=== PATIENT | female | born 1955 | race Hispanic/Latino ===

== ENCOUNTER 2020-05-13 11:28 | Emergency (ER) | payer OTHER | END 2020-05-13 12:10 | disposition home or self-care (01) | LOC: NAV ERS 11:28 | DX: M25.561 Pain in right knee (principal); F41.9 Anxiety disorder, unspecified; F32.9 Major depressive disorder, single episode, unspecified; Z79.899 Other long term (current) drug therapy; X50.1XXA Overexertion from prolonged static or awkward postures, initial encounter | CPT/HCPCS: 99283 ==

== ENCOUNTER 2022-08-20 20:29 | Emergency (ER) | payer MEDICARE ==
[2022-08-20] MEDS ORDERED: Dexamethasone 1 MG TAB ONE ×2 (21:18→21:19)
[2022-08-20] MEDS ORDERED: Dexamethasone 4 MG TAB ONE (21:18)
== END 2022-08-20 22:12 | disposition home or self-care (01) ==
LOC: NAV ERS 20:29
DX: J06.9 Acute upper respiratory infection, unspecified (principal)
CPT/HCPCS: 71046; 87804; J8540

== ENCOUNTER 2023-08-10 13:22 | Emergency (ER) | payer MEDICARE | END 2023-08-10 14:28 | disposition home or self-care (01) | LOC: NAV ERS 13:22 | DX: M25.562 Pain in left knee (principal); E78.2 Mixed hyperlipidemia; Z79.899 Other long term (current) drug therapy | CPT/HCPCS: 99283 ==